=== PATIENT | female | born 1965 | race Caucasian/White ===

== ENCOUNTER 2017-04-16 11:37 | Day surgery (SDC) | payer BC ==
--- NOTE | 2017-04-03 09:13 | MH ---
cc: BOB KAPOOR M.D. DATE OF ADMISSION 04/16/2017 DATE OF 1965 HISTORY OF PRESENT ILLNESS The patient is a 51-year-old white female with a history of coronary artery disease, diabetes, hypertension, hyperlipidemia, AICD implant, who is now admitted for AICD generator replacement. Her AICD battery was found to be at elective replacement indicator status. Her charge times were also fairly long, so she was recommended AICD generator replacement. Clinically she has been doing well, basically asymptomatic. PAST MEDICAL HISTORY 1. Coronary artery disease status post multiple ventricular fibrillation arrests 07/14/2009, subsequently undergoing stenting of the proximal LAD at the site of a 50-60% lesion. No other disease was seen at that time. 2. AICD implant 07/19/2009. 3. Diabetes. 4. Hyperlipidemia. 5. Hypertension. 6. History of ventricular tachycardia 07/09/2015, successfully treated with antitachycardia pacing. MEDICATIONS Her cardiac medications: 1. Amlodipine 10 mg q. day. 2. Aspirin 81 mg q. day. 3. Atorvastatin 80 mg q.h.s. ALLERGIES No known drug allergies. THE PATIENT DOES EXPERIENCE HAIR LOSS WITH PLAVIX. FAMILY HISTORY Noncontributory. SOCIAL HISTORY The patient denies alcohol or tobacco abuse. REVIEW OF SYSTEMS As in the history of present illness otherwise negative or noncontributory. PHYSICAL EXAMINATION VITAL SIGNS: Blood pressure 108/80 with a pulse of 60, respirations 12. GENERAL: In general she is a well-developed, well-nourished white female in no acute distress. HEENT/NECK: Jugular venous pressure is normal. Carotid pulses are 2+ bilaterally and without bruits. CHEST: Examination of the chest reveals clear lung woody. CARDIAC: On cardiac examination she has a regular rhythm and rate without S3, S4, or murmur. ABDOMEN: On abdominal examination she has a soft, nontender abdomen. Bowel sounds are present. There is no definite hepatosplenomegaly. EXTREMITIES: Examination of the extremities reveals no clubbing, cyanosis or edema. IMPRESSION AICD battery nearing end-of-life in this 51-year-old white female with a history of coronary artery disease, ventricular tachyarrhythmias, AICD implant, diabetes, hypertension. The patient has been recommended AICD generator replacement as well as AICD defibrillation threshold testing. The nature of these procedures and potential risks have been outlined. She agrees to proceed. PLAN AICD generator replacement and AICD defibrillation threshold testing on 04/16/2017. MD PAM Heller/KRISTOFER /8:46 AM /8:58 AM [facility]
[~2017-04-16] VITALS: Ht 162.6 cm; Wt 87.8 kg
[2017-04-16] MEDS ORDERED: PROPOFOL 200 MG/20 ML AMP IV ONE (12:00)
[2017-04-16] MEDS ORDERED: DEXAMETHASONE SOD PHOS 4 MG/ML VIAL IV ONE (12:00)
[2017-04-16 12:18] VITALS: BP 153/93; PULSE 75; RESP 18; O2SAT 99
[2017-04-16] MEDS ORDERED: DAPA1TAB PO (12:31)
[2017-04-16] MEDS ORDERED: ASPI-516 CHEW (12:31)
[2017-04-16] MEDS ORDERED: ATOR80TA45 PO (12:31)
[2017-04-16] MEDS ORDERED: AMLO10TA2 PO (12:31)
[2017-04-16 12:41] LABS: AUTOMATED NEUTROPHIL # 4.6 TH/MM3 (1.8-7.7); BASOPHIL % 0.4 % (0.0-2.0); EOSINOPHIL # 0.2 TH/MM3 (0-0.4); EOSINOPHIL % 2.6 % (0.0-4.0); HEMATOCRIT 43.9 % (35.0-46.0); LYMPH % 27.9 % (9.0-44.0); LYMPHOCYTE # 2.1 TH/MM3 (1.0-4.8); MEAN CELL VOLUME 87.9 FL (80.0-100.0); MEAN CORPUSCULAR HEMOGLOBIN 30.1 PG (27.0-34.0); MEAN CORPUSCULAR HGB CONC 34.2 % (32.0-36.0); MEAN PLATELET VOLUME 8.2 FL (7.0-11.0); MONO % 6.9 % (0.0-8.0); MONOCYTE # 0.5 TH/MM3 (0-0.9); NEUT % 62.2 % (16.0-70.0); PLATELET COUNT 275 TH/MM3 (150-450); RED CELL DISTRIBUTION WIDTH 13.3 % (11.6-17.2); WHITE BLOOD COUNT 7.5 TH/MM3 (4.0-11.0)
[2017-04-16] MEDS ORDERED: CHLORHEXIDINE GLUCONATE 2 % 1 PACK (2 CLOTHS) TOPICAL PRN (12:45)
[2017-04-16] MEDS ORDERED: POVIDONE IODINE 5% (ANTISEPSIS KIT) 4 APPLICATIONS EACH NARE PRN (12:45)
[2017-04-16] MEDS ORDERED: MUPIROCIN 2% OINT 1 APPLIC/GM SYR NASAL SCH (12:45)
[2017-04-16] MEDS ORDERED: SODIUM CHLORID 0.9% 500 ML IV PRN (12:45)
[2017-04-16] MEDS ORDERED: POVIDONE IODINE 5% (ANTISEPSIS KIT) 4 APPLICATIONS EACH NARE SCH (12:45)
[2017-04-16] MEDS ORDERED: METOPROLOL TARTRATE 25 MG TAB PO PRN (12:45)
[2017-04-16] MEDS ORDERED: NO Heparin, Lovenox, Coumadin at least 12 hours prior to procedure. PRN (12:45)
[2017-04-16] MEDS ORDERED: ceFAZolin 2 GM PREMIX 50 ML IV SCH (12:45)
[2017-04-16] MEDS ORDERED: CHLORHEXIDINE GLUCONATE 2 % 1 PACK (2 CLOTHS) TOPICAL SCH (12:45)
[2017-04-16] MEDS ORDERED: Hold AM Insulin & AM Hypoglycemic medications in diabetic patients PRN (12:45)
[2017-04-16] MEDS ORDERED: LACTATED RINGER'S 1000 ML IV PRN (12:45)
[2017-04-16] MEDS ORDERED: VANCOMYCIN 1000 MG/NS 250 ML IV SCH ×2 (12:45)
[2017-04-16 12:58] LABS: BICARBONATE 25.7 MEQ/L (21.0-32.0); CREATININE 0.87 MG/DL (0.50-1.00)
[2017-04-16] MEDS ORDERED: NS 1000 ML IV SCH (13:00)
[2017-04-16] MEDS ORDERED: ceFAZolin INJ 1,000 MG VIAL ONE (13:33)
[2017-04-16] MEDS ORDERED: VANCOMYCIN 500 MG VIAL ONE (13:33)
[2017-04-16] MEDS ORDERED: LIDOCAINE HCL 2% 50 ML VIAL ONE (13:33)
[2017-04-16] MEDS ORDERED: VANCOMYCIN HCL 1000 MG VIAL ONE (13:33)
[2017-04-16] MEDS ORDERED: MIDAZOLAM HCL 2 MG/2 ML VIAL ONE (13:46)
[2017-04-16] MEDS ORDERED: LEVA500T33 PO (14:36)
[2017-04-16] MEDS ORDERED: ACETAMINOPHEN 325 MG TAB PO PRN (14:45)
--- NOTE | 2017-04-17 09:24 | EKG ---
Date Performed: 04/16/2017 Time Performed: 12:34:30 PTAGE: 51 years EKG: Sinus rhythm . Normal ECG NO PREVIOUS TRACING DOCTOR: Sundeep Carter Interpretating Date/Time 04/17/2017 09:22:23
--- NOTE | 2017-04-17 10:49 | MP ---
cc: BOB KAPOOR M.D. DATE OF SURGERY: 04/16/2017 PROCEDURE 1. AICD generator replacement. 2. AICD defibrillation threshold testing. OPERATIVE NOTE The patient was brought to the operating suite in a fasting state after having signed informed consent. The left upper chest was prepped and draped as per policy and anesthetized with 1% lidocaine. A transverse incision was made over the preexisting generator using a plasma blade and the generator freed from the subcutaneous pocket. The leads were disconnected and then reconnected to the new generator which is a [employer] Intica device. The lead and the generator were placed into the subcutaneous pocket which was closed using 3-0 Vicryl interrupted stitches in two layers to close the subcutaneous tissue and then 4-0 Monocryl running stitch to close the subcuticular tissue. Overlapping Steri-Strips and a pressure dressing were applied. The R-wave was measured at 18.3 volts with a stimulation threshold of 0.7 millivolts. Testing of the device was performed. Ventricular fibrillation was induced. The patient was successfully rescued with the 20 joule shock after a charge time of 4 seconds at a shock impedance of 88 ohms. There were no apparent immediate complications. The patient tolerated the procedure well. She was thoroughly sedated throughout the case. CONCLUSION Successful AICD generator replacement using a [employer] In[employer] AICD generator, status post AICD defibrillation threshold testing. MD PAM Heller/TLL /2:27 PM /10:41 AM [facility]
== END 2017-04-16 15:54 | disposition home or self-care (01) ==
LOC: HDOC 11:37 → HDIC 11:38 → HDOC 15:54
PROVIDERS: ATTEND Internal Medicine Cardiovascular Disease
DX: Z45.02 Encounter for adjustment and management of automatic implantable cardiac defibrillator (principal); I49.01 Ventricular fibrillation; I25.10 Atherosclerotic heart disease of native coronary artery without angina pectoris; E11.9 Type 2 diabetes mellitus without complications; I10 Essential (primary) hypertension; E78.5 Hyperlipidemia, unspecified; Z79.82 Long term (current) use of aspirin; Z01.818 Encounter for other preprocedural examination; Z01.810 Encounter for preprocedural cardiovascular examination
CPT/HCPCS: 00534; 33262; 80048; 85025; 85610; 85730; 93005; C1722; J0690; J2250; J3010; J3370; J1100